=== PATIENT | male | born 1955 | race Caucasian/White ===

== ENCOUNTER 2020-05-14 06:58 | Inpatient (IN) ==
[~2020-05-14 06:58] MED LIST: ROPIVACAINE HCL/PF 100 MG, EPINEPHrine 0.2 MG, KETOROLAC TROMETHAMINE 30 MG in NORMAL S... IJ PRN; TRANEXAMIC ACID 1,000 MG in NORMAL SALINE 100 ML IV PRN; ceFAZolin SODIUM 1 GM VIAL IV PRN
[2020-05-14] MEDS ORDERED: PROPOFOL VIAL IV ONE ×2 (07:13→10:20)
[2020-05-14] MEDS ORDERED: BUPIVACAINE HCL/PF 10 ML VIAL ONE (07:13)
[2020-05-14] MEDS ORDERED: LIDOCAINE HCL 20 ML VIAL ONE (07:13)
[2020-05-14] MEDS ORDERED: BUPIVACAINE HCL/EPINEPHRINE 50 ML VIAL IJ ONE (07:13)
[2020-05-14] MEDS ORDERED: MIDAZOLAM HCL/PF 5 MG/ML VIAL ONE (07:14)
[2020-05-14] MEDS ORDERED: ceFAZolin SODIUM 1 GM VIAL ONE (07:24)
[2020-05-14] MEDS ORDERED: ISOPROPYL ALCOHOL 480 APPL BTL MC ONE (07:25)
[2020-05-14] MEDS: RINGER'S SOLUTION,LACTATED 1,000 ML IV PRN ×3 (07:26→10:30)
--- NOTE | 2020-05-14 08:11 | ANES ---
Anesthesia Pre Procedure Eval Vitals/Labs: Last Vital Signs Temp 36.3 C 05/14/20 07:11 Pulse 75 05/14/20 07:11 Resp 16 05/14/20 07:11 BP 157/97 H 05/14/20 07:11 Pulse Ox 98 05/14/20 07:11 HOME MEDICATIONS naproxen sodium 220 mg tablet 220 mg PO Q8H PRN tab 04/28/19 [Last Taken Unknown] Allergies/Adverse Reactions: Allergies Allergy/AdvReac Type Severity Reaction Status Date / Time No Known Allergies Allergy Verified 05/14/20 07:07 - Planned Procedure Planned Procedure: RTK Medication List Reviewed:: Yes Allergies Verified: Yes Medical History (Last Reviewed 05/14/20 @ 08:09 by Mayur Rossi CRNA) Bain esophagus GERD (gastroesophageal reflux disease) Hypercholesteremia Mitral valve regurgitation moderate Arthritis of knee Onset Date: ~2013 bilateral Surgical History (Last Reviewed 05/14/20 @ 08:09 by Mayur Rossi CRNA) History of esophagogastroduodenoscopy (EGD) Onset Date: 05/18/17 H/O colonoscopy Onset Date: 02/15/17 S/P hernia surgery Onset Date: 09/08/17 Hx of appendectomy Onset Date: 1968 Family History (Last Reviewed 05/14/20 @ 08:09 by Mayur Rossi CRNA) Father Heart disease Mother Hypertension Sister Asthma - Family Anesthesia History Family History:: no untoward family reactions to anesthesia - Airway/Neck/Teeth Within Normal Limits:: Yes Teeth Condition: intact Neck Exam: full range of motion Mallampatti Score: 3 Thyromental (T-M) distance: > 6 cm Mandibulo Hyoid distance: > 3 cm - Respiratory Respiratory Physical: lungs clear Smoking Status: Never smoker Sleep Apnea currently treated: No Sleep Apnea by current assessment: No - Cardiovascular Cardiac History: hyperlipidemia Tolerate Activity: Good Heart Sounds: S1 & S2, Regular - Gastrointestinal NPO since: [place] - Anesthesia Assessment and Plan ASA Class: PS, II Anesthesia Type Plan: Spinal - rt adductor canal block Planned difficult intubation/equipment available: No
[2020-05-14] MEDS ORDERED: MAGNESIUM HYDROXIDE 30 ML UDC PO PRN (10:52)
[2020-05-14] MEDS ORDERED: oxyCODONE HCL/ACETAMINOPHEN 1 TAB TABLET PO PRN (10:52)
[2020-05-14] MEDS ORDERED: ONDANSETRON HCL/PF 2 MG/ML VIAL IV PRN (10:52)
[2020-05-14] MEDS ORDERED: MAG HYDROX/ALUMINUM HYD/SIMETH 30 ML UDC PO PRN (10:52)
[2020-05-14] MEDS ORDERED: NORMAL SALINE 1,000 ML IV PRN (10:52)
[2020-05-14] MEDS ORDERED: ACETAMINOPHEN 500 MG TABLET PO PRN (10:52)
[2020-05-14] MEDS ORDERED: diphenhydrAMINE HCL 50 MG/ML VIAL IV PRN (10:52)
[2020-05-14] MEDS ORDERED: MORPHINE SULFATE 2 MG/ML DISP.SYRIN IV PRN (10:52)
--- NOTE | 2020-05-14 10:56 | OR ---
Operative Report - Dictated Report Narrative: Date: 05/14/2020 Preoperative diagnosis: Right knee degenerative joint disease. Postoperative diagnosis: Right knee degenerative joint disease. Procedure: Right total knee arthroplasty. Surgeon: Tavares Root M.D. Rust Proofer: Hi Castro PA-C provided a set of essential, skilled, educated hands that assisted in positioning, transfer, retraction, manipulation, irrigation, closure of wounds, and placement of dressings all of which could not be provided by the available surgical crew. Anesthesia: Spinal with regional block and local periarticular joint injection. Complications: None Specimens: Bone for disposal. Estimated blood loss: Minimal. Tourniquet time: 80 Minutes at 300 millimeters of mercury. Retained implants: Depuy Attune size 8 standard lugged cemented posterior stabilized femoral component. Size 8 cemented rotating bearing tibial platform. 8 by 6 millimeter posterior stabilized cross-linked tibial insert. 41 millimeter medialized patella button. Indications: Morgan is a 65-year-old male who has been followed in my clinic for period of time with significant complaints of right knee pain consistent with arthritic changes. They had failed conservative measures including but not limited to activity modification, passage of time, medications, and other conservative measures. Patient wished to proceed with surgical treatment. The risks, benefits, and alternatives were discussed in clinic. The risks of , blood clots, bleeding, infection, nerve/tendon blood vessel/ injury, malposition of components, intraoperative fracture, postoperative limited range of motion, persistent pain, failure of components, and need for additional procedures. Patient wished to proceed consent was obtained after answering all questions. Procedure: After marking the correct extremity on the floor, the patient was taken to the operating room. A timeout was performed. IV antibiotics consisting of 2 g of Ancef were administered prior to the procedure. A regional followed by spinal anesthetic was induced by anesthesia. on the operative table with all bony prominences well-padded. Boone catheter was placed and a bump was placed under the operative side buttock. SCDs and SYMONE hose were utilized on the nonoperative leg. A well-padded tourniquet was applied to the operative thigh. The operative leg was then pre-scrubbed with alcohol prepped and draped in a standard sterile fashion. After exsanguinating the extremity with an Esmarch bandage, the tourniquet was inflated. After marking out the anterior knee for standard incision centered over the patella, the skin was incised and dissected down to the joint retinaculum. The joint retinaculum was marked out as well as the horizontal axis of the patella, and a standard medial parapatellar arthrotomy was then made. The most proximal aspect of the quadriceps tendon and the patella tendon insertion were protected from release. A partial synovectomy was performed as well as a resection of the infrapatellar fat pad. The distal femoral fat pad proximal to the trochlea was also resected using cautery. The soft tissues were elevated off the medial aspect of the proximal tibia using a Beltran elevator ensuring that we did not transect the medial collateral ligament. Upon initial evaluation range of motion was approximately 3 degrees to 130 degrees of flexion. There were signs of advanced arthrosis in the medial and patellofemoral joint spaces. There were large marginal osteophytes which were removed with a rongeur. The knee was hyperflexed and the patella was tucked laterally. Protecting the surrounding soft tissues with Homans, an entry drill was placed down the femoral canal using Whitesides line for guidance into the entry point. The intramedullary femoral alignment bj was utilized in order to cut the distal femur in 5 of valgus resecting 10 millimeters of bone. Next the distal femur was sized to a size 8. An anterior referencing guide was utilized to place the distal femoral cutting block in 3 of external rotation. This was pinned into place. The rotation was confirmed both visually and based on anatomic landmarks. The 4 in 1 cutting jig of the appropriate size was utilized in order to make all bony cuts. Retractors were utilized in order to protect surrounding soft tissues. This cut did not result in any excessive notching. We then cut the box centered over the distal femur. This allowed for resection of the anterior and posterior cruciate ligaments. I then turned my attention to the preparation of the tibia. Using an extra medullary tibial alignment bj, 2 millimeters of bone was resected off the medial articular surface. This was made perpendicular to the mechanical axis of the joint with the alignment bj centered over the ankle mortise. The alignment bj was parallel to the mechanical axis, centered over the medial one third of the tibial tubercle, paralleling the anterior surface of the tibia. We then turned our attention to the remaining meniscus and soft tissues. These were removed while protecting the surrounding ligaments and soft tissues. The marginal osteophytes off the anterior, posterior, medial, lateral aspects of the femur and tibia were removed. The tibia was sized out to a size 8. Next the tibia was drilled and punched in an externally rotated position as confirmed with a drop bj. Next the trial femur and a series of tibial inserts were utilized in order to allow for full extension and maximal flexion. It was found that a 6 millimeter insert gave the best range of motion and stability at multiple flexion points as well as at full extension there was less than 2 mm of gapping both medially and laterally. There is minimal anterior translation with the knee at 90 of flexion and no signs of being able to dislocate the knee. The patella was then prepared. The initial thickness was 27 millimeters. This was reamed down to 17 millimeters parallel to the anterior surface of the patella. It was sized out to a size 41 mm medialized patella button. This was then drilled and trialed. Without any medial restraint the patella tracked appropriately and did not sublux or dislocate. At this point, it was felt these were the appropriate sized implants and all trials were removed. The standard periarticular joint injection consisting of ropivacaine, Toradol, and epinephrine were injected into the periarticular joint tissues. The bony surfaces were thoroughly irrigated with a pulsatile-suction saline irrigation device. A bone plug from the prior resected anterior chamfer cut was placed into the drill hole at the distal femur. The bony surfaces were then dried in preparation for placement of the implants. The cement was vacuum mixed per the midwife practitioner's instructions. The cement was placed on the dry bony surfaces and posterior aspect of the implants. The implants were impacted into place, removing all extruded cement. At this point anesthesia administered tranexamic acid per protocol intravenously. The knee was placed in extension with axial loading with the trial insert while the cement cured. A dilute 0.35% betadyne-saline solution was used to irrigate the knee and allowed to sit in the knee while the cement cured. Once the cement cured, all remaining extruded cement was removed. The knee was placed through a range of motion with the trial insert to ensure appropriate range of motion and stability. Final range of motion was approximately 0 to 125 degrees. The knee was again thoroughly irrigated with pulsatile saline lavage. The final polyethylene insert was then impacted into place ensuring no retained soft tissues. The remaining periarticular joint injection was injected. The knee was then packed with lap sponges which were soaked with dilute betadyne solution and the tourniquet was let down. Pressure was held for approximately 2 minutes and then hemostasis was obtained using electrocautery to coagulate any bleeding vessels. The knee was then placed over a triangle and the arthrotomy was closed with interrupted #1 Vicryl after thoroughly irrigating the joint. The deep and subcutaneous tissues were closed with interrupted 0 and 3-0 Vicryl respectively. Skin was closed with a running subcutaneous 3-0 Monocryl and Prineo dressing. 4 x 4's, ABD, Sof-Rol, and a full leg Satish wrap were applied. All sponge, needle, blade, and instrument counts were correct prior to closing the wounds. Postoperative condition: The patient was awoken and transferred to the postanesthesia care unit in stable condition. Plan is to be admitted to the inpatient medical/surgical floor postoperatively for 24 hours of IV antibiotics, physical therapy, occupational therapy, and medical co-management. Patient will be weightbearing as tolerated with range of motion as tolerated. DVT prophylaxis will be with SCDs, SYMONE hose, and pharmacological anticoagulation. Anticipated hospital stay is approximately 2-4 days.
--- NOTE | 2020-05-14 11:18 | ANES ---
Post Anesthesia Discharge - Transfer of Care Transfer of Care handoff given to nurse: Yes - Discharge from PACU Discharge from PACU when meets criteria: Yes
--- NOTE | 2020-05-14 11:22 | ANES ---
Anesthesia Procedure Note Procedure Note: ANESTHESIA PROCEDURE NOTE Date of procedure: 05/14/2020. Time of procedure: 07 23. Performed by: Ramiro Rossi CRNA Mystery Shopper: Ayanna Sanchez RN . Preprocedure diagnosis: Right knee DJD. Post procedure diagnosis: Same. Procedure: Ultrasound-guided right adductor canal block Indications: Postoperative analgesia. Findings: Patient is brought to operating room #4 and given a spinal anesthetic. The patient's right inner thigh was prepped with ChloraPrep. Ultrasound utilized to identify the saphenous nerve in the right adductor canal. 20-gauge 4 inch regional block needle was advanced under ultrasound guidance until tip of needle was placed just proximal to saphenous nerve. 30 mL of 0.25% Marcaine with epinephrine 1 200,000 was injected with adequate spread of local anesthesia noted around the nerve root. Regional needle was removed intact. EBL: Minimal. Fluids: N/A. Specimen: N/A. Post procedure condition: The patient tolerated the procedure well. No complications were noted. Thank you for this consultation Ramiro Rossi CRNA
--- NOTE | 2020-05-14 12:47 | ANES ---
Post Anesthesia Assessment - Vital Signs Vitals: Last Vital Signs Temp 36.9 C 05/14/20 11:55 Pulse 98 05/14/20 12:10 Resp 20 05/14/20 12:10 BP 138/91 H 05/14/20 12:10 Pulse Ox 98 05/14/20 12:10 Airway Patency: Normal - Mental Status Level Of Consciousness: Awake - Pain Level Pain Score: 0 - N/V Assessment Nausea/Vomiting Presence: None Dehydration:: No
[2020-05-14] MEDS: oxyCODONE HCL/ACETAMINOPHEN 1 TAB TABLET PO PRN ×3 (14:39→22:52)
[2020-05-14] MEDS: ceFAZolin SODIUM 2 GM in DEXTROSE 5 % IN WATER 50 ML IV SCH ×4 (14:41→22:05)
[2020-05-14] MEDS ORDERED: SENNOSIDES/DOCUSATE SODIUM 1 TAB TABLET PO SCH (21:00)
[2020-05-15] MEDS: oxyCODONE HCL/ACETAMINOPHEN 1 TAB TABLET PO PRN ×4 (02:54→15:50)
[2020-05-15 06:35] LABS: Hematocrit 37.7 % (42.0-52.0); Hemoglobin 12.2 gm/dL (13.5-18.0); Mean Cell Volume 91.7 fl (78-100); Mean Corpuscular Hemoglobin 29.7 pg (27-31); Mean Corpuscular Hgb Conc 32.4 g/dl (32-36); Mean Platelet Volume 10.5 fl (8-11.3); Platelet Count 174 K/mm3 (150-450); Red Blood Count 4.11 M/mm3 (4.7-6.0); Red Cell Distribution Width 13.5 % (11.5-14.0); White Blood Count 5.7 K/mm3 (4.0-10.5)
[2020-05-15 06:38] LABS: BUN/Creatinine Ratio 12.6 (9.0-21.6); Calcium * 8.1 mg/dL (7.9-10.9); Estimated Creat Clear 71.3
[2020-05-15] MEDS: ceFAZolin SODIUM 2 GM in DEXTROSE 5 % IN WATER 50 ML IV SCH ×2 (07:05)
[2020-05-15] MEDS ORDERED: ENOXAPARIN SODIUM 40 MG/0.4 ML SYRG SC SCH (09:53)
--- NOTE | 2020-05-15 12:03 | DS ---
(1) Status post total right knee replacement using cement Problem: Acute Date of Discharge:: 05/15/20 Hospital Course: -65-year-old male was admitted postoperatively status post a right total knee arthroplasty. Patient surgery was uncomplicated, his stay has been significantly uncomplicated as well. Patient's goals have been met including stairs with PT, ambulation down the park, pain is under control, p.o. diet tolerated. Discussed with patient discharged home. Exam today right lower e xtremity reveals sensation intact to light touch, distal capillary refill brisk, diffuse mild tenderness about right knee, no significant erythema or drainage, per nail in place, mild diffuse edema. Patient will be discharged home to begin outpatient physical therapy tomorrow. He will follow-up with orthopedics in 2 weeks postop. Patient will continue with the following recommendations. -Weightbearing as tolerated right lower extremity, assistive device PRN -P.o. diet as tolerated -P.o. pain medication as needed -Begin outpatient PT/OT progress as tolerated per protocol -DVT prophylaxis: Lovenox until 10 days postop followed by 325 mg aspirin daily, SYMONE hose knee-high bilateral -Follow-up with orthopedic outpatient clinic at 2 weeks postop -Maintain postop dressings in place until follow-up with orthopedic outpatient clinic -Disposition: Discharge home with outpatient PT Procedures Performed: see notes below List Procedures: Status post right total knee arthroplasty Results and Findings: Lab Pending Results 05/15/20 06:25: WBC 5.7, RBC 4.11 L, Hgb 12.2 L, Hct 37.7 L, MCV 91.7, MCH 29.7, MCHC 32.4, RDW 13.5, Plt Count 174, MPV 10.5 05/15/20 06:25: Sodium 138, Plasma Sodium 138, Potassium 4.0, Chloride 105, Carbon Dioxide 28.0, Anion Gap 9.0, BUN 14, Creatinine 1.11, Est GFR (Non-Af Amer) 71, BUN/Creatinine Ratio 12.6, Random Glucose 112 H, Calcium 8.1 Discharge Location: Home Disposition: Home self-care Condition: Stable Discharge Activity: Activity as tolerated, Weight bearing - As tolerated with assistive device PRN Discharge Diet: General/regular food Referrals: Manuel Be MD [Primary Care Provider] - Problem Oriented Discharge Instructions to Patient/Family: Total Knee Replacement, Care After, [id number] Print Language (Citizen Of [place] or Serbian Available): Citizen Of [place] Additional Patient Instructions (free text): Physical Therapy appointment at [facility] outpatient rehab on WednesdayMay 17 at 2:00pm. Please fax demographics and PT order to [phone]. Follow up with Orthopedic with Dr. Root May 29 at 9:00a.m. Prescriptions (Any new or edited meds): Enoxaparin Sodium [Lovenox] 40 mg SC Q24H #9 disp.syrin Transmission Status: Pending to [facility] oxyCODONE HCL/ACETAMINOPHEN [Percocet 5 MG/325 MG] 1 - 2 tab PO Q4H PRN #90 tab PRN Reason: Severe Pain (Pain Scale 7-10) Transmission Status: Sent to [facility] Complete Home Medications List: Complete Home Medication List: naproxen sodium 220 mg tablet 220 mg PO Q8H PRN tab 04/28/19 Enoxaparin Sodium [Lovenox] 40 mg SC Q24H #9 disp.syrin 05/15/20 oxyCODONE HCL/ACETAMINOPHEN [Percocet 5 MG/325 MG] 1 - 2 tab PO Q4H PRN #90 tab 05/15/20 Amb Orders for Discharge: PT Evaluation and Treatment* Location: None Selected Forms: Patient Portal Registration
[2020-05-15 15:13] VITALS: BP 135/67
== END 2020-05-15 15:50 | disposition home or self-care (01) | DRG 470 ==
LOC: MS 06:58
PROVIDERS: ADMIT Orthopaedic Surgery; ATTEND Orthopaedic Surgery
CPT/HCPCS: 36415; 73560; 80048; 85027; 97110; 97116; 97161; 97530

== ENCOUNTER 2020-10-08 06:33 | Inpatient (IN) ==
[~2020-10-08 06:33] MED LIST changes: +MORPHINE SULFATE 15 MG TABLET.SA PO PRN
[2020-10-08] MEDS ORDERED: FLU VACC QS2020-21(6MOS UP)/PF 60 MCG/0.5 ML SYRINGE IM ONE (06:53)
[2020-10-08] MEDS ORDERED: ISOPROPYL ALCOHOL 480 APPL BTL MC ONE (07:03)
[2020-10-08] MEDS ORDERED: ceFAZolin SODIUM 1 GM VIAL ONE (07:03)
[2020-10-08] MEDS ORDERED: BUPIVACAINE HCL/EPINEPHRINE 50 ML VIAL IJ ONE (07:08)
[2020-10-08] MEDS ORDERED: LIDOCAINE HCL 20 ML VIAL ONE (07:08)
[2020-10-08] MEDS ORDERED: BUPIVACAINE HCL/PF 10 ML VIAL ONE (07:08)
[2020-10-08] MEDS ORDERED: PROPOFOL VIAL IV ONE (07:09)
[2020-10-08] MEDS ORDERED: NORMAL SALINE 20 ML VIAL ONE (07:09)
[2020-10-08] MEDS ORDERED: MIDAZOLAM HCL/PF 5 MG/ML VIAL ONE (07:09)
[2020-10-08] MEDS: RINGER'S SOLUTION,LACTATED 1,000 ML IV PRN ×3 (07:18→09:29)
--- NOTE | 2020-10-08 07:32 | ANES ---
Anesthesia Pre Procedure Eval Vitals/Labs: Last Vital Signs Temp 36.8 C 10/08/20 06:42 Pulse 74 10/08/20 06:42 Resp 14 10/08/20 06:42 BP 162/94 H 10/08/20 06:42 HOME MEDICATIONS rosuvastatin 20 mg tablet 20 mg PO DAILY 09/19/20 [Last Taken Unknown] Allergies/Adverse Reactions: Allergies Allergy/AdvReac Type Severity Reaction Status Date / Time No Known Allergies Allergy Verified 09/19/20 08:13 - Planned Procedure Planned Procedure: Left Arthroplasty Total Knee Medication List Reviewed:: Yes Allergies Verified: Yes Medical History (Last Reviewed 10/08/20 @ 07:31 by Mayur Rossi CRNA) Arthritis of knee Onset Date: ~2013 bilateral Bain esophagus GERD (gastroesophageal reflux disease) Hypercholesteremia Mitral valve regurgitation moderate Surgical History (Last Reviewed 10/08/20 @ 07:31 by Mayur Rossi CRNA) H/O colonoscopy Onset Date: 02/15/17 History of esophagogastroduodenoscopy (EGD) Onset Date: 05/18/17 History of knee replacement Onset Date: 05/14/20 Right total knee arthroplasty. - S/P hernia surgery Onset Date: 09/08/17 Hx of appendectomy Onset Date: 1969 Family History (Last Reviewed 10/08/20 @ 07:31 by Mayur Rossi CRNA) Father Heart disease Mother Hypertension Sister Asthma - Family Anesthesia History Family History:: no untoward family reactions to anesthesia - Airway/Neck/Teeth Within Normal Limits:: Yes Teeth Condition: intact Neck Exam: full range of motion Mallampatti Score: 2 Thyromental (T-M) distance: > 6 cm Mandibulo Hyoid distance: > 3 cm - Respiratory Respiratory Physical: lungs clear Smoking Status: Never smoker Sleep Apnea currently treated: No Sleep Apnea by current assessment: No - Cardiovascular Cardiac History: hyperlipidemia Tolerate Activity: Good Heart Sounds: S1 & S2, Regular - Gastrointestinal NPO since: [place] - Anesthesia Assessment and Plan ASA Class: PS, II Anesthesia Type Plan: Spinal - adductor canal block Planned difficult intubation/equipment available: No
[2020-10-08] MEDS ORDERED: MAG HYDROX/ALUMINUM HYD/SIMETH 30 ML UDC PO PRN (09:23)
[2020-10-08] MEDS ORDERED: MORPHINE SULFATE 2 MG/ML DISP.SYRIN IV PRN (09:23)
[2020-10-08] MEDS ORDERED: ACETAMINOPHEN 500 MG TABLET PO PRN (09:23)
[2020-10-08] MEDS ORDERED: ONDANSETRON HCL/PF 2 MG/ML VIAL IV PRN (09:23)
[2020-10-08] MEDS ORDERED: MAGNESIUM HYDROXIDE 30 ML UDC PO PRN (09:23)
[2020-10-08] MEDS ORDERED: DEXTROSE 5%-LACTATED RINGERS 1,000 ML IV PRN (09:23)
[2020-10-08] MEDS ORDERED: ZOLPIDEM TARTRATE 5 MG TABLET PO PRN (09:23)
[2020-10-08] MEDS ORDERED: diphenhydrAMINE HCL 50 MG/ML VIAL IV PRN (09:23)
--- NOTE | 2020-10-08 09:26 | OR ---
Operative Report - Dictated Report Narrative: Date: 10/08/2020 Preoperative diagnosis: Left knee degenerative joint disease. Postoperative diagnosis: Left knee degenerative joint disease. Procedure: Left total knee arthroplasty. Surgeon: Roberto Rosario M.D. Bunk Assembler: Kd Harrison PA-C (provided and essential set of skilled, educated hands that assisted with transfer, positioning, prepping, draping, manipulation, retraction, placement of jigs, injection, insertion of implants, irrigation, closure wounds, and dressings all of which could not be performed by the available surgical crew) Anesthesia: Spinal with regional block and local periarticular joint injection. Complications: None Specimens: Bone. Estimated blood loss: Minimal. Tourniquet time: 80 minutes at 325 millimeters of mercury. Retained implants: Depuy Attune size 7 left lugged cemented posterior stabilized femoral component. Size 8 fixed-bearing cemented tibial platform. 7 by 5 millimeter posterior stabilized cross-linked tibial insert. 41 millimeter medialized patella button. Indications: Mr. Ho is a 65-year-old gentleman who has had longstanding left knee pain and arthrosis. This patient was followed in my clinic for period of time with significant complaints of left knee pain consistent with arthritic changes. He had failed conservative measures including, but not limited to, activity modification, passage of time, medications, and other conservative measures. Patient wished to proceed with surgical treatment. The risks, benefits, and alternatives were discussed in clinic. The risks of , blood clots, bleeding, infection, nerve/tendon blood vessel/ injury, malposition of components, intraoperative fracture, postoperative limited range of motion, persistent pain, failure of components, and need for additional procedures. Patient wished to proceed consent was obtained after answering all questions. Procedure: After marking the correct extremity on the floor, the patient was taken to the operating room. A timeout was performed. IV antibiotics consisting of Ancef were administered prior to the procedure. A regional followed by spinal anesthetic was induced by anesthesia, per my request, on the operative table with all bony prominences well-padded. Boone catheter was placed, and a bump was placed under the operative side buttock. SCDs and SYMONE hose were utilized on the nonoperative leg. A well-padded tourniquet was applied to the operative thigh. The operative leg was then pre-scrubbed with alcohol, prepped, and draped in a standard sterile fashion. After exsanguinating the extremity with an Esmarch bandage, the tourniquet was inflated. After marking out the anterior knee for standard incision centered over the patella, the skin was incised and dissected down to the joint retinaculum. The joint retinaculum was marked out as well as the horizontal axis of the patella, and a standard medial parapatellar arthrotomy was then made. The most proximal aspect of the quadriceps tendon and the patella tendon insertion were protected from release. A partial synovectomy was performed as well as a resection of the infrapatellar fat pad. The distal femoral fat pad proximal to the trochlea was also resected using cautery. The soft tissues were elevated off the medial aspect of the proximal tibia using a Beltran elevator ensuring that we did not transect the medial collateral ligament. Upon initial evaluation range of motion was approximately 0 degrees to 130 degrees of flexion. There were signs of advanced arthrosis in the medial and patellofemoral greater than lateral joint spaces. There were large marginal osteophytes which were removed with a rongeur. The knee was hyperflexed and the patella was tucked laterally. Protecting the surrounding soft tissues with Homans, an entry drill was placed down the femoral canal using Whitesides line for guidance into the entry point. The intramedullary femoral alignment bj was utilized in order to cut the distal femur in 5 degrees of valgus resecting 10 millimeters of bone. Next the distal femur was sized to a size 7. A posterior referencing guide was utilized to place the distal femoral cutting block in 3 degrees of external rotation. This was pinned into place. The rotation was confirmed both visually and based on anatomic landmarks. The 4 in 1 cutting jig of the appropriate size was utilized in order to make all bony cuts. The gayathri wing was used to ensure no notching. Retractors were utilized in order to protect surrounding soft tissues. This cut did not result in any excessive notching. We then cut the box centered over the distal femur. This allowed for resection of the anterior and posterior cruciate ligaments. I then turned my attention to the preparation of the tibia. Using an extra medullary tibial alignment bj, 3 millimeters of bone was resected off the medial articular surface. This was made perpendicular to the mechanical axis of the joint with the alignment bj centered over the ankle mortise. The alignment bj was checked and was noted to be parallel to the mechanical axis, centered over the medial one third of the tibial tubercle, paralleling the anterior surface of the tibia. We then turned our attention to the remaining meniscus and soft tissues. These were removed while protecting the surrounding ligaments and soft tissues. The marginal osteophytes off the anterior, posterior, medial, lateral aspects of the femur and tibia were removed. The tibia was sized out to a size 8. Next the tibia was drilled and punched in an externally rotated position. Next the trial femur and a series of tibial inserts were utilized in order to allow for full extension and maximal flexion. It was found that a 5 millimeter insert gave the best range of motion and stability at multiple flexion points as well as at full extension there was less than 2 mm of gapping both medially and laterally. There is minimal anterior translation with the knee at 90 degrees of flexion and no signs of being able to dislocate the knee. The patella was then prepared. The initial thickness was 28 millimeters. This was reamed down to 18 millimeters parallel to the anterior surface of the patella. It was sized out to a size 41 medialized patella button. This was then drilled and trialed. Without any medial restraint the patella tracked appropriately and did not sublux or dislocate. At this point, it was felt these were the appropriate sized implants, and all trials were removed. The standard periarticular joint injection consisting of ropivacaine, Toradol, and epinephrine were injected into the periarticular joint tissues. The bony surfaces were thoroughly irrigated with a pulsatile-suction saline irrigation device. A bone plug from the prior resected anterior chamfer cut was placed into the drill hole at the distal femur. The bony surfaces were then dried in preparation for placement of the implants. The cement was vacuum mixed per the physical education department chair's instructions. The cement was placed on the dry bony surfaces and posterior aspect of the implants. The implants were impacted into place, removing all extruded cement. At this point anesthesia administered tranexamic acid per protocol intravenously. The knee was placed in extension with axial loading with the trial insert while the cement cured. Once the cement cured, all remaining extruded cement was removed. The knee was placed through a range of motion with the trial insert to ensure appropriate range of motion and stability. Final range of motion was approximately 0 to 130 degrees. The knee was again thoroughly irrigated with pulsatile saline lavage. The final polyethylene insert was then impacted into place ensuring no retained soft tissues. The remaining periarticular joint injection was injected. A medium Hemovac drain was placed exiting superior laterally. The knee was then placed over a triangle and the arthrotomy was closed with interrupted #1 Vicryl after thoroughly irrigating the joint. The deep and subcutaneous tissues were closed with interrupted 0 and 3-0 Vicryl respectively. Skin was closed with a running subcutaneous 3-0 Monocryl and Prineo Dermabond dressing. 4 x 4's, Sof-Rol, and a full leg Satish wrap were applied. All sponge, needle, blade, and instrument counts were correct prior to closing the wounds. Postoperative condition: The patient was awoken and transferred to the postanesthesia care unit in stable condition. Plan is to be admitted to the inpatient medical/surgical floor postoperatively for 24 hours of IV antibiotics, physical therapy, occupational therapy, and medical comanagement. Patient will be weightbearing as tolerated with range of motion as tolerated. DVT prophylaxis will be with SCDs, SYMONE hose, and pharmacological anticoagulation. Anticipated hospital stay is approximately 1-3 days.
--- NOTE | 2020-10-08 09:47 | ANES ---
Post Anesthesia Discharge - Transfer of Care Transfer of Care handoff given to nurse: Yes - Discharge from PACU Discharge from PACU when meets criteria: Yes
--- NOTE | 2020-10-08 09:49 | ANES ---
Anesthesia Procedure Note Procedure Note: ANESTHESIA PROCEDURE NOTE Date of procedure: 10/08/2020. Time of procedure: 0740. Performed by: Ramiro Rossi CRNA Engine Room Operator: Marylou Villasenor RN . Preprocedure diagnosis: Left knee DJD. Post procedure diagnosis: Same. Procedure: Ultrasound-guided left adductor canal block Indications: Postoperative analgesia. Findings: Patient brought to operating room #4 and given a spinal anesthetic. Patient's left inner thigh was prepped with ChloraPrep. Ultrasound utilized to identify the saphenous nerve in the left adductor canal. A 4 inch 20-gauge regional block needle was advanced under ultrasound guidance till tip of needle was placed just proximally to saphenous nerve. A total of 30 mL of 0.25% Marcaine with epinephrine 1-200,000 was injected with adequate spread of local anesthesia noted a round of the nerve. Regional block needle was removed intact. EBL: Minimal. Fluids: N/A. Specimen: N/A. Post procedure condition: The patient tolerated the procedure well. No complications were noted. Thank you for this consultation Ramiro Rossi CRNA
[2020-10-08] MEDS: KETOROLAC TROMETHAMINE 15 MG/ML VIAL IV SCH ×3 (10:49→21:14)
[2020-10-08] MEDS: ceFAZolin SODIUM 1 GM in DEXTROSE 5 % IN WATER 100 ML IV SCH ×6 (11:44→23:54)
--- NOTE | 2020-10-08 13:14 | ANES ---
Post Anesthesia Assessment - Vital Signs Vitals: Last Vital Signs Temp 36.8 C 10/08/20 10:11 Pulse 63 10/08/20 12:56 Resp 16 10/08/20 12:56 BP 127/89 10/08/20 12:56 Pulse Ox 100 10/08/20 12:56 Airway Patency: Normal - Mental Status Level Of Consciousness: Awake - Pain Level Pain Score: 0 - N/V Assessment Nausea/Vomiting Presence: None Dehydration:: No
[2020-10-08] MEDS: oxyCODONE HCL/ACETAMINOPHEN 1 TAB TABLET PO PRN (14:55)
[2020-10-08] MEDS ORDERED: SENNOSIDES/DOCUSATE SODIUM 1 TAB TABLET PO SCH (21:00)
[2020-10-08] MEDS ORDERED: ROSUVASTATIN CALCIUM 20 MG TABLET PO SCH (21:00)
[2020-10-08] MEDS: MORPHINE SULFATE 15 MG TABLET.SA PO SCH (21:13)
[2020-10-09] MEDS: KETOROLAC TROMETHAMINE 15 MG/ML VIAL IV SCH ×2 (03:48→09:32)
[2020-10-09 06:45] LABS: Hematocrit 37.4 % (42.0-52.0); Hemoglobin 12.2 gm/dL (13.5-18.0); Mean Cell Volume 89.3 fl (78-100); Mean Corpuscular Hemoglobin 29.1 pg (27-31); Mean Corpuscular Hgb Conc 32.6 g/dl (32-36); Mean Platelet Volume 11.2 fl (8-11.3); Platelet Count 167 K/mm3 (150-450); Red Blood Count 4.19 M/mm3 (4.7-6.0); Red Cell Distribution Width 13.7 % (11.5-14.0); White Blood Count 7.2 K/mm3 (4.0-10.5)
[2020-10-09 07:01] LABS: Anion Gap 6.8 mmol/L (6.8-13.8); BUN/Creatinine Ratio 10.4 (9.0-21.6); Calcium * 7.9 mg/dL (7.9-10.9); Carbon Dioxide 27.4 mmol/L (24-32.6); Estimated Creat Clear 85.4; Potassium 4.2 mmol/L (3.4-4.6)
--- NOTE | 2020-10-09 07:56 | DS ---
(1) Hyperlipidemia Problem: Chronic (2) Status post left knee replacement Problem: Acute Date of Discharge:: 10/09/20 Hospital Course: Mr. Ho was admitted to the floor after undergoing left total knee arthroplasty. Tolerated this well. Was admitted to the floor postoperatively for 24 hours of IV antibiotics, pain control, medical comanagement, and occupational and physical therapy. OT and PT were consulted to assist with activities of daily living and ambulation. Was made weightbearing as tolerated with range of motion as tolerated. Pain was initially controlled with IV regimen. This was transitioned to oral once tolerating a by mouth intake. Was resumed on home diet and medications. A Boone catheter was inserted in the operating room which was discontinued by postoperative day 1. A drain was placed intraoperatively into the knee which was discontinued on postoperative day 1. Lovenox, SCDs, and SYMONE hose were utilized for DVT prophylaxis. Vital signs remained stable to the hospital course. Labs were obtained which showed a final hemoglobin of 12.2 grams. BMP was reviewed and was stable. Physical examination throughout the hospital course showed an extremity that had sensation that was intact to light touch, palpable pulses, a benign wound, motor intact to the toes, ankle, and knee. Knee range of motion was approximately 5 degrees to 70 degrees. Once an oral pain regimen was tolerated and physical therapy goals were met, it was felt that they were stable for discharge to home. Instructions: Continue with weightbearing as tolerated and range of motion as tolerated. It is okay to shower and get the wound wet as long as there is no drainage from the wound. Do not bathe or soak the wound. If there is any drainage from the wound keep the wound clean and dry and cover with dry gauze and tape. Change every 2- 3 days as needed if there is any drainage. Cover wound while showering if there is any drainage. Continue with physical therapy. Resume home diet. Report any fever over 101.5 Fahrenheit, uncontrolled pain, increased drainage, foul odor of drainage, new or increased calf pain or shortness of breath, or any other significant complaints. A 325mg daily aspirin will be started after finishing an ticoagulation if not allergic. Continue with SYMONE hose on the operative extremity until instructed otherwise. No driving until instructed otherwise. Follow up in approximately 2-3 weeks. Procedures Performed: see notes below List Procedures: Left total knee arthroplasty Results and Findings: Lab Pending Results 10/09/20 06:05: WBC 7.2, RBC 4.19 L, Hgb 12.2 L, Hct 37.4 L, MCV 89.3, MCH 29.1, MCHC 32.6, RDW 13.7, Plt Count 167, MPV 11.2 10/09/20 06:05: Sodium 134, Plasma Sodium 134, Potassium 4.2, Chloride 104, Carbon Dioxide 27.4, Anion Gap 6.8, BUN 10, Creatinine 0.96, Est GFR (Non-Af Amer) 84, BUN/Creatinine Ratio 10.4, Random Glucose 119 H, Calcium 7.9 Discharge Location: Home Disposition: Home self-care Condition: Good Discharge Activity: Activity as tolerated, Weight bearing Discharge Diet: General/regular food Referrals: Manuel Be MD [Primary Care Provider] - Additional Patient Instructions (free text): Physical Therapy appointment at [facility] on WednesdayOctober 11 at 8:30am Please fax demographics and PT order to fax# [phone]. Follow up Orthopedic [facility] Office appointment on WednesdayOctober 29 at 9:30am. Prescriptions (Any new or edited meds): Enoxaparin Sodium [Lovenox] 40 mg SC Q24H #7 disp.syrin Transmission Status: Pending to [facility] Morphine Sulfate [Ms Contin] 15 mg PO Q12H #10 tablet.sa Transmission Status: Sent to [facility] oxyCODONE HCL/ACETAMINOPHEN [Percocet 5 MG/325 MG] 1 - 2 tab PO Q4H PRN #50 tab PRN Reason: Moderate Pain (Pain Scale 4-6) Transmission Status: Sent to [facility] Sennosides/Docusate Sodium [Senokot-S] 2 tab PO HS #60 tab Transmission Status: Pending to [facility] Complete Home Medications List: Complete Home Medication List: rosuvastatin 20 mg tablet 20 mg PO DAILY 09/19/20 Enoxaparin Sodium [Lovenox] 40 mg SC Q24H #7 disp.syrin 10/09/20 Morphine Sulfate [Ms Contin] 15 mg PO Q12H #10 tablet.sa 10/09/20 Sennosides/Docusate Sodium [Senokot-S] 2 tab PO HS #60 tab 10/09/20 oxyCODONE HCL/ACETAMINOPHEN [Percocet 5 MG/325 MG] 1 - 2 tab PO Q4H PRN #50 tab 10/09/20 Amb Orders for Discharge: PT Evaluation and Treatment* Facility: [facility], Location: Rehabilitation Services Forms: Patient Portal Registration
[2020-10-09] MEDS: oxyCODONE HCL/ACETAMINOPHEN 1 TAB TABLET PO PRN ×2 (07:57→12:57)
[2020-10-09] MEDS ORDERED: ENOXAPARIN SODIUM 40 MG/0.4 ML SYRG SC SCH (08:23)
[2020-10-09] MEDS: MORPHINE SULFATE 15 MG TABLET.SA PO SCH (09:32)
[2020-10-09 13:57] VITALS: BP 154/78
== END 2020-10-09 14:00 | disposition home or self-care (01) | DRG 470 ==
LOC: MS 06:33 → EDSTATUS 08:00
PROVIDERS: ADMIT Orthopaedic Surgery; ATTEND Orthopaedic Surgery